=== PATIENT | female | born 1950 | race Caucasian/White ===

== ENCOUNTER 2021-11-04 19:35 | Inpatient (IN) ==
[2021-11-04 21:42] LABS: Hemoglobin 14.8 g/dL (11.5-15.4); Mean Corpuscular Hemoglobin 31.6 pg (28.0-33.3); Mean Corpuscular Volume 95.1 fL (83.0-100.0); Red Cell Distribution Width 13.8 % (11.5-14.5); Segmented Neutrophils % 65.6 %
[2021-11-04 21:44] LABS: Basophils % 0.3 %; Hematocrit 44.5 % (35.3-44.9); Immature Granulocytes % 0.6 % (0-4); Immature Platelets 5.8 % (1.1-6.1); Lymphocytes # 1.7 K/mcL (0.6-4.6); Lymphocytes % 23.3 %; Mean Corpuscular HGB Conc 33.3 g/dL (31.6-35.5); Mean Platelet Volume 10.3 fL (9.4-12.4); Monocytes # 0.7 K/mcL (0.0-1.3); Monocytes % 10.2 %; Neutrophils # 4.7 K/mcL (1.6-8.9); Platelet Count 112 K/mcL (140-400); Red Blood Count 4.68 M/mcL (3.82-4.97); White Blood Count 7.1 K/mcL (4.3-11.1)
[2021-11-04 21:45] LABS: VBG HCO3 28 mEq/L (21-27); VBG PCO2 53 mmHg (41-51); VBG PH 7.33 pH Units (7.32-7.42); VBG PO2 25 mmHg (25-50)
[2021-11-04 21:51] LABS: INR 1.3; Prothrombin Time 14.3 Seconds (9.4-12.1)
[2021-11-04] MEDS ORDERED: Isovue-370 500 ML BOTTLE IVP ONE (21:54)
[2021-11-04 22:02] LABS: Bilirubin,Urine Negative (Negative); Blood,Urine Negative (Negative); Clarity,Urine Clear (Clear); Color,Urine Yellow (Yellow); Glucose,Urine (UA) >=1000 mg/dL (Normal); Hyaline Casts,Urine Moderate per lpf (None Seen); Ketones,Urine 10 mg/dL (Negative); Leukocyte Esterase,Urine Negative (Negative); Mucus,Urine Few per lpf (None-Few); Nitrite,Urine Negative (Negative); Protein,Urine 100 mg/dL (Neg-Trace); RBC,Urine 0-3 per hpf (0-3); Specific Gravity,Urine 1.028 (1.010-1.025); Squamous Epithelial Cell,Urine Few per hpf (None-Few); Urobilinogen,Urine Normal (Normal)
[2021-11-04 22:04] LABS: Alanine Aminotransferase 13 Units/L (7-52); Albumin 4.1 g/dL (3.5-5.7); Albumin/Globulin Ratio 1.2 (1.1-2.2); Alkaline Phosphatase 49 Units/L (34-104); Aspartate Amino Transferase 21 Units/L (13-39); BUN/Creatinine Ratio 15 (6-26); Bilirubin,Direct 0.2 mg/dL (0.0-0.2); Bilirubin,Indirect 0.5 mg/dL (0.0-1.0); Bilirubin,Total 0.7 mg/dL (0.3-1.0); Blood Urea Nitrogen 21 mg/dL (8-23); Calcium 8.8 mg/dL (8.6-10.3); Carbon Dioxide 26 mEq/L (23-29); Chloride 95 mEq/L (98-107); Globulin 3.4 g/dL (2.4-3.5); Glucose 155 mg/dL (70-105); Osmolality,Calculated 278 (280-300); Sodium 131 mEq/L (136-145); Total Protein 7.5 g/dL (6.4-8.9); Troponin I < 0.03 ng/mL (< 0.04); eGFR For African Americans 45 (> 60); eGFR For Non-African Americans 37 (> 60)
[2021-11-04 22:09] LABS: Reactive Lymphocytes Present (Not Present)
[2021-11-04 22:10] LABS: Toxic Granulation Present (Not Present)
[2021-11-04 23:49] LABS: Adenovirus Not Detected (Not Detect); Coronavirus 229E Not Detected (Not Detect); Coronavirus HKU1 Not Detected (Not Detect); Coronavirus NL63 Not Detected (Not Detect); Coronavirus OC43 Not Detected (Not Detect)
[2021-11-04 23:50] LABS: Bordetella Pertussis Not Detected (Not Detect); Chlamydophila pneumoniae Not Detected (Not Detect); Human Metapneumovirus Not Detected (Not Detect); Human Rhinovirus/Enterovirus Not Detected (Not Detect); Influenza A Subtype 2009 H1 Not Detected (Not Detect); Influenza B Not Detected (Not Detect); Mycoplasma pneumoniae Not Detected (Not Detect); Parainfluenza Virus 1 Not Detected (Not Detect); Parainfluenza Virus 2 Not Detected (Not Detect); Parainfluenza Virus 3 Not Detected (Not Detect); Parainfluenza Virus 4 Not Detected (Not Detect); Respiratory Syncytial Virus Not Detected (Not Detect); SARS-CoV-2 DETECTED (Not Detect)
[2021-11-05] MEDS ORDERED: Acetaminophen 325 MG TABLET PO ONE (00:28)
[2021-11-05] MEDS ORDERED: Naloxone 0.4 MG/ML INJ IVP PRN (03:56)
[2021-11-05] MEDS ORDERED: Ondansetron 4 MG/2 ML VIAL IVP PRN (03:56)
[2021-11-05] MEDS: *HR* Heparin 5,000 UNIT/ML VIAL SQ SCH ×3 (06:03→21:29)
[2021-11-05] MEDS ORDERED: Remdesivir 200 MG in 0.9 % Sodium Chloride 100 ML IVPB ONE (06:30)
[2021-11-05 08:05] LABS: Hematocrit 43.2 % (35.3-44.9); Hemoglobin 14.2 g/dL (11.5-15.4); Immature Granulocytes % 0.3 % (0-4); Immature Platelets 5.9 % (1.1-6.1); Lymphocytes # 1.3 K/mcL (0.6-4.6); Lymphocytes % 20.6 %; Mean Corpuscular HGB Conc 32.9 g/dL (31.6-35.5); Mean Corpuscular Hemoglobin 31.3 pg (28.0-33.3); Mean Corpuscular Volume 95.4 fL (83.0-100.0); Mean Platelet Volume 10.7 fL (9.4-12.4); Monocytes # 0.4 K/mcL (0.0-1.3); Monocytes % 5.9 %; Neutrophils # 4.5 K/mcL (1.6-8.9); Platelet Count 102 K/mcL (140-400); Red Blood Count 4.53 M/mcL (3.82-4.97); Red Cell Distribution Width 13.5 % (11.5-14.5); Segmented Neutrophils % 73.2 %; White Blood Count 6.1 K/mcL (4.3-11.1)
[2021-11-05 08:06] LABS: Fibrinogen 688 mg/dL (169-393)
[2021-11-05 08:11] LABS: D-Dimer 253 ng/mLFEU (0-500)
[2021-11-05 08:22] LABS: Calcium 8.8 mg/dL (8.6-10.3); Chol/HDL Ratio 2.5 (0-4.9); Magnesium 1.9 mg/dL (1.6-2.6); Phosphorous 3.2 mg/dL (2.7-4.5); Potassium 4.2 mEq/L (3.5-5.1)
[2021-11-05] MEDS ORDERED: Water for inj. (sterile) 10 ML ONE (08:50)
[2021-11-05] MEDS ORDERED: Azithromycin 500 MG in 0.9 % Sodium Chloride 250 ML IVPB SCH (09:00)
[2021-11-05] MEDS ORDERED: cefTRIAXone 1,000 MG in 0.9 % Sodium Chloride Mini Bag 100 ML IVPB SCH (09:00)
[2021-11-05 11:08] LABS: Estimated Average Glucose 157 mg/dl; Hemoglobin A1C 7.1 %
[2021-11-05] MEDS: ALPRAZolam 1 MG TABLET PO PRN ×2 (12:35→21:29)
[2021-11-05] MEDS: Ringers Solution, Lactated 1,000 ML IVC SCH (12:56)
[2021-11-06] MEDS ORDERED: Acetaminophen 325 MG TABLET PO ONE (00:28)
[2021-11-06] MEDS: Ringers Solution, Lactated 1,000 ML IVC SCH (02:05)
[2021-11-06] MEDS: Remdesivir 100 MG in 0.9 % Sodium Chloride 100 ML IVPB SCH (05:43)
[2021-11-06] MEDS: *HR* Enoxaparin 40 MG/0.4 ML SYRINGE SQ SCH (05:43)
[2021-11-06 06:24] LABS: Basophils % 0.1 %; Hematocrit 42.4 % (35.3-44.9); Hemoglobin 14.4 g/dL (11.5-15.4); Immature Granulocytes % 0.5 % (0-4); Lymphocytes % 21.9 %; Mean Corpuscular Volume 91.4 fL (83.0-100.0); Mean Platelet Volume 10.7 fL (9.4-12.4); Monocytes % 10.3 %; Platelet Count 128 K/mcL (140-400); Red Blood Count 4.64 M/mcL (3.82-4.97); Red Cell Distribution Width 13.3 % (11.5-14.5); Segmented Neutrophils % 67.2 %
[2021-11-06 06:25] LABS: Neutrophils # 6.3 K/mcL (1.6-8.9); White Blood Count 9.3 K/mcL (4.3-11.1)
[2021-11-06 06:46] LABS: Alanine Aminotransferase 17 Units/L (7-52); Albumin 3.4 g/dL (3.5-5.7); Albumin/Globulin Ratio 1.1 (1.1-2.2); Alkaline Phosphatase 39 Units/L (34-104); Aspartate Amino Transferase 34 Units/L (13-39); BUN/Creatinine Ratio 21 (6-26); Bilirubin,Direct 0.1 mg/dL (0.0-0.2); Bilirubin,Indirect 0.4 mg/dL (0.0-1.0); Bilirubin,Total 0.5 mg/dL (0.3-1.0); Blood Urea Nitrogen 22 mg/dL (8-23); Calcium 8.4 mg/dL (8.6-10.3); Carbon Dioxide 21 mEq/L (23-29); Chloride 104 mEq/L (98-107); Globulin 3.1 g/dL (2.4-3.5); Glucose 126 mg/dL (70-105); Osmolality,Calculated 285 (280-300); Potassium 4.5 mEq/L (3.5-5.1); Sodium 135 mEq/L (136-145); Total Protein 6.5 g/dL (6.4-8.9); eGFR For African Americans > 60 (> 60); eGFR For Non-African Americans 53 (> 60)
[2021-11-06] MEDS: ALPRAZolam 1 MG TABLET PO PRN ×2 (08:30→20:24)
[2021-11-06 12:22] LABS: ABG Base Excess 0 mEq/L (-2 to 3); ABG HCO3 24 mEq/L (21-27); ABG Oxygen Saturation 91 % (95-98); ABG PCO2 38 mmHg (35-45); ABG PH 7.42 pH Units (7.32-7.45); ABG PO2 61 mmHg (85-104); ABG TCO2 26 mEq/L (20-26)
[2021-11-06] MEDS: Insulin LISPRO 300 UNITS/3 ML VIAL SUBQ SCH (17:02)
[2021-11-06] MEDS: Venlafaxine XR (24 HR) 75 MG CAP.ER.24H PO SCH (20:24)
[2021-11-07 01:57] LABS: Albumin 3.5 g/dL (3.5-5.7); Albumin/Globulin Ratio 1.1 (1.1-2.2); Bilirubin,Direct 0.2 mg/dL (0.0-0.2); Bilirubin,Indirect 0.3 mg/dL (0.0-1.0); Bilirubin,Total 0.5 mg/dL (0.3-1.0); Globulin 3.2 g/dL (2.4-3.5); Total Protein 6.7 g/dL (6.4-8.9)
[2021-11-07 01:59] LABS: BUN/Creatinine Ratio 23 (6-26); Blood Urea Nitrogen 23 mg/dL (8-23); C-Reactive Protein 221 mg/L (Less than 10); Calcium 8.7 mg/dL (8.6-10.3); Carbon Dioxide 27 mEq/L (23-29); Chloride 105 mEq/L (98-107); Glucose 184 mg/dL (70-105); Lactate Dehydrogenase 265 Units/L (140-271); Osmolality,Calculated 290 (280-300); Sodium 136 mEq/L (136-145); eGFR For African Americans > 60 (> 60); eGFR For Non-African Americans 53 (> 60)
[2021-11-07 02:14] LABS: Ferritin 370 ng/mL (10-120)
[2021-11-07] MEDS: *HR* Enoxaparin 40 MG/0.4 ML SYRINGE SQ SCH (06:26)
[2021-11-07] MEDS: Remdesivir 100 MG in 0.9 % Sodium Chloride 100 ML IVPB SCH (06:26)
[2021-11-07] MEDS: Aspirin Enteric Coated 81 MG Tablet PO SCH (09:26)
[2021-11-07] MEDS: Insulin LISPRO 300 UNITS/3 ML VIAL SUBQ SCH ×3 (09:52→17:04)
[2021-11-07] MEDS: ALPRAZolam 1 MG TABLET PO PRN (20:38)
[2021-11-07] MEDS: Acetaminophen 325 MG TABLET PO PRN (20:38)
[2021-11-07] MEDS: Venlafaxine XR (24 HR) 75 MG CAP.ER.24H PO SCH (20:39)
[2021-11-08] MEDS: Remdesivir 100 MG in 0.9 % Sodium Chloride 100 ML IVPB SCH (06:33)
[2021-11-08 06:34] LABS: Albumin 3.4 g/dL (3.5-5.7); Albumin/Globulin Ratio 1.1 (1.1-2.2); Bilirubin,Direct 0.2 mg/dL (0.0-0.2); Bilirubin,Indirect 0.3 mg/dL (0.0-1.0); Bilirubin,Total 0.5 mg/dL (0.3-1.0); Total Protein 6.4 g/dL (6.4-8.9)
[2021-11-08] MEDS: *HR* Enoxaparin 40 MG/0.4 ML SYRINGE SQ SCH (06:36)
[2021-11-08] MEDS: Insulin LISPRO 300 UNITS/3 ML VIAL SUBQ SCH ×3 (08:41→17:37)
[2021-11-08] MEDS: Aspirin Enteric Coated 81 MG Tablet PO SCH (09:48)
[2021-11-08] MEDS: ALPRAZolam 1 MG TABLET PO PRN ×2 (09:48→20:42)
[2021-11-08] MEDS: Venlafaxine XR (24 HR) 75 MG CAP.ER.24H PO SCH (20:41)
[2021-11-08] MEDS: Acetaminophen 325 MG TABLET PO PRN (20:58)
[2021-11-09] MEDS: *HR* Enoxaparin 40 MG/0.4 ML SYRINGE SQ SCH (05:48)
[2021-11-09] MEDS: Remdesivir 100 MG in 0.9 % Sodium Chloride 100 ML IVPB SCH (05:48)
[2021-11-09 06:50] LABS: Albumin 3.4 g/dL (3.5-5.7); Albumin/Globulin Ratio 1.1 (1.1-2.2); Bilirubin,Direct 0.2 mg/dL (0.0-0.2); Bilirubin,Indirect 0.5 mg/dL (0.0-1.0); Bilirubin,Total 0.7 mg/dL (0.3-1.0); Globulin 3.1 g/dL (2.4-3.5); Total Protein 6.5 g/dL (6.4-8.9)
[2021-11-09] MEDS: Aspirin Enteric Coated 81 MG Tablet PO SCH (07:34)
[2021-11-09] MEDS: BuPROPion XL (24 HR) 150 MG TABLET PO SCH (07:34)
[2021-11-09] MEDS: Insulin LISPRO 300 UNITS/3 ML VIAL SUBQ SCH ×3 (08:35→17:05)
[2021-11-09] MEDS: Acetaminophen 325 MG TABLET PO PRN (20:27)
[2021-11-09] MEDS: ALPRAZolam 1 MG TABLET PO PRN (20:27)
[2021-11-09] MEDS: Venlafaxine XR (24 HR) 75 MG CAP.ER.24H PO SCH (20:27)
[2021-11-10] MEDS: *HR* Enoxaparin 40 MG/0.4 ML SYRINGE SQ SCH (05:01)
[2021-11-10 06:50] LABS: Albumin 3.4 g/dL (3.5-5.7); Albumin/Globulin Ratio 1.1 (1.1-2.2); Bilirubin,Direct 0.2 mg/dL (0.0-0.2); Bilirubin,Indirect 0.4 mg/dL (0.0-1.0); Bilirubin,Total 0.6 mg/dL (0.3-1.0); Globulin 3.1 g/dL (2.4-3.5); Total Protein 6.5 g/dL (6.4-8.9)
[2021-11-10] MEDS: Insulin LISPRO 300 UNITS/3 ML VIAL SUBQ SCH ×3 (08:07→17:49)
[2021-11-10 09:09] LABS: Lactate Dehydrogenase 300 Units/L (140-271)
[2021-11-10] MEDS: BuPROPion XL (24 HR) 150 MG TABLET PO SCH (09:21)
[2021-11-10] MEDS: Aspirin Enteric Coated 81 MG Tablet PO SCH (09:21)
[2021-11-10] MEDS: Acetaminophen 325 MG TABLET PO PRN ×2 (09:43→20:49)
[2021-11-10 10:49] LABS: C-Reactive Protein 134 mg/L (Less than 10)
[2021-11-10] MEDS ORDERED: Isovue-370 500 ML BOTTLE IVP ONE (11:33)
[2021-11-10 13:03] LABS: BUN/Creatinine Ratio 27 (6-26); Blood Urea Nitrogen 25 mg/dL (8-23); Calcium 8.7 mg/dL (8.6-10.3); Carbon Dioxide 24 mEq/L (23-29); Chloride 102 mEq/L (98-107); Glucose 110 mg/dL (70-105); Osmolality,Calculated 295 (280-300); Potassium 3.4 mEq/L (3.5-5.1); Sodium 140 mEq/L (136-145); eGFR For African Americans > 60 (> 60); eGFR For Non-African Americans 59 (> 60)
[2021-11-10] MEDS: ALPRAZolam 1 MG TABLET PO PRN (20:48)
[2021-11-10] MEDS: Venlafaxine XR (24 HR) 75 MG CAP.ER.24H PO SCH (20:48)
[2021-11-11] MEDS: *HR* Enoxaparin 40 MG/0.4 ML SYRINGE SQ SCH (05:00)
[2021-11-11] MEDS: Insulin LISPRO 300 UNITS/3 ML VIAL SUBQ SCH ×3 (08:29→17:33)
[2021-11-11] MEDS: BuPROPion XL (24 HR) 150 MG TABLET PO SCH (08:30)
[2021-11-11] MEDS: Aspirin Enteric Coated 81 MG Tablet PO SCH (08:30)
[2021-11-11 11:55] VITALS: PULSE 75; TEMP 98.6
[2021-11-11 12:03] LABS: ABG Base Excess 1 mEq/L (-2 to 3); ABG HCO3 25 mEq/L (21-27); ABG Oxygen Saturation 67 % (95-98); ABG PCO2 39 mmHg (35-45); ABG PH 7.42 pH Units (7.32-7.45); ABG PO2 34 mmHg (85-104); ABG TCO2 26 mEq/L (20-26)
[2021-11-11 16:08] VITALS: BP 98/54
[2021-11-11 17:34] VITALS: O2SAT 98
== END 2021-11-11 18:25 | disposition home or self-care (01) | DRG 177 ==
LOC: EMEROOARM 19:35 → CDU 19:35 → 2ANU 11-05 04:13 → SUATTDRO 11-05 08:04 → 2ANU 11-06 17:02
PROVIDERS: ADMIT Internal Medicine; ATTEND Internal Medicine